=== PATIENT | male | born 1970 | race Caucasian/White ===

== ENCOUNTER 2018-12-25 13:55 | Observation (INO) | payer SELFPAY ==
--- NOTE | 2018-12-25 14:17 | ED ---
HPI Chest Pain - HPI Summary HPI Summary: The patient is a 48 y/o M presenting to [facility] with a chief complaint of sudden onset diffuse squeezing CP starting this morning, which then resolved but resolved until approximately an hour and a half AFTERSCHOOL. He states that the initial CP was less severe than the returned CP. He treated the most recent CP with an oral NTG, which is he prescribed for a previous AR two years ago. The NTG did not immediately relieve the pain, but the pain has subsided to 4/10 in severity now. He also takes a baby aspirin every morning, but he does not take any other medications. He additionally c/o heart palpitations, tightness in the jaw, intermittent episodes of numbness in the left arm, and increased fatigue over the last week. He denies dizziness. He reports no exertion at the time of onset. He had a cardiac catheterization at time of the AR in 2017. - History of Current Complaint Chief Complaint: EDChestPainROMI Time Seen by Provider: 12/25/18 14:09 Hx Obtained From: Patient Onset/Duration: Started Hours Ago - started this morning, then resolved, and returned an hour and a half AFTERSCHOOL, Still Present Timing: Lasting Hours Initial Severity: Severe Current Severity: Moderate Pain Intensity: 4 Pain Scale Used: 0-10 Numeric Chest Pain Location: Diffuse Chest Pain Radiates: No Character: Pressure/Squeezing Aggravating Factor(s): Nothing Alleviating Factor(s): NTG 123 - one pill of NTG with mild relief Associated Signs and Symptoms: Positive: Chest Pain, Numbness - in left arm, intermittent episodes, Palpitations, Other: - jaw tightness. Negative: Dizziness - Allergy/Home Medications Allergies/Adverse Reactions: Allergies Allergy/AdvReac Type Severity Reaction Status Date / Time No Known Allergies Allergy Verified 12/25/18 14:20 Home Medications: Home Medications Aspirin EC TAB* [Ecotrin EC Low Dose 81 MG*] 81 mg PO DAILY 12/25/18 [History Confirmed 12/25/18] PMH/Surg Hx/FS Hx/Imm Hx Endocrine/Hematology History: Denies: Hx Diabetes Cardiovascular History: Reports: Hx Myocardial Infarction - age 46 in 2017 Denies: Hx Hypertension Sensory History: Denies: Hx Deafness Opthamlomology History: Denies: Hx Legally Blind EENT History: Denies: Hx Deafness - Surgical History Surgery Procedure, Year, and Place: cardiac catherization in 2017 Infectious Disease History: No Infectious Disease History: Denies: Traveled Outside the [place] in Last 30 Days - Family History Known Family History: Negative: Diabetes - Social History Alcohol Use: None Hx Substance Use: No Substance Use Type: Reports: None Hx Tobacco Use: No Smoking Status (MU): Never Smoked Tobacco Do You Chew or Dip Tobacco: No Have You Chewed or Dipped Tobacco in the LAST YEAR: No Have You Smoked in the Last Year: No Review of Systems Positive: Fatigue Positive: Other - jaw tightness Positive: Palpitations, Chest Pain - squeezing pain Neurological: Other - NEGATIVE: dizziness Positive: Numbness - in left arm All Other Systems Reviewed And Are Negative: Yes Physical Exam - Summary Physical Exam Summary: VITAL SIGNS: Reviewed. GENERAL: Patient is a well-developed and nourished male who is lying comfortable in the stretcher. Patient is not in any acute respiratory distress. HEAD AND FACE: No signs of trauma. No ecchymosis, hematomas or skull depressions. No sinus tenderness. EYES: PERRLA, EOMI x 2, No injected conjunctiva, no nystagmus. EARS: Hearing grossly intact. Ear canals and tympanic membranes are within normal limits. MOUTH: Oropharynx within normal limits. NECK: Supple, trachea is midline, no adenopathy, no JVD, no carotid bruit, no c- spine tenderness, neck with full ROM. CHEST: Symmetric, no tenderness at palpation LUNGS: Clear to auscultation bilaterally. No wheezing or crackles. CVS: Regular rate and rhythm, S1 and S2 present, no murmurs or gallops appreciated. ABDOMEN: Soft, non-tender. No signs of distention. No rebound no guarding, and no masses palpated. Bowel sounds are normal. EXTREMITIES: FROM in all major joints, no edema, no cyanosis or clubbing. NEURO: Alert and oriented x 3. No acute neurological deficits. Speech is normal and follows commands. SKIN: Dry and warm Triage Information Reviewed: Yes Vital Signs On Initial Exam: Initial Vitals Temp Pulse Resp BP Pulse Ox 97.4 F 93 16 152/102 98 12/25/18 13:59 12/25/18 13:59 12/25/18 13:59 12/25/18 13:59 12/25/18 13:59 Vital Signs Reviewed: Yes Diagnostics - Vital Signs Vital Signs Temp Pulse Resp BP Pulse Ox 12/25/18 13:59 97.4 F 93 16 152/102 98 - Laboratory Result Diagrams: 12/25/18 14:48 12/25/18 14:48 Lab Statement: Any lab studies that have been ordered have been reviewed, and results considered in the medical decision making process. - Radiology CXR Radiology Interpretation Completed By: Radiologist Summary of Radiographic Findings: No active cardiopulmonary disease. ED physician has reviewed this report. - EKG 14:04 Cardiac Rate: NL - 85 BPM EKG Rhythm: Sinus Rhythm EKG Comparison: No Significant Change - Similar to EKG on 11/06/15. Summary of EKG Findings: No ST elevations. Q waves in aVR and aVF. 15:02 Cardiac Rate: NL - 72 BPM EKG Rhythm: Sinus Rhythm EKG Comparison: No Significant Change - Similar to EKG on 12/25/18. Summary of EKG Findings: No ST elevations. Chest Pain Course/Dx - Course Assessment/Plan: The patient is a 48 y/o M presenting to [facility] with a chief complaint of sudden onset diffuse squeezing CP starting this morning, which then resolved but resolved until approximately an hour and a half AFTERSCHOOL. He states that the initial CP was less severe than the returned CP. He treated the most recent CP with an oral NTG, which is he prescribed for a previous AR two years ago. The NTG did not immediately relieve the pain, but the pain has subsided to 4/10 in severity now. He also takes a baby aspirin every morning, but he does not take any other medications. He additionally c/o heart palpitations, tightness in the jaw, intermittent episodes of numbness in the left arm, and increased fatigue over the last week. He denies dizziness. He reports no exertion at the time of onset. He had a cardiac catheterization at time of the AR in 2017. Blood tests without any significant abnormality. EKG shows no ST elevation. Chest x-ray impression: No acute pathology. Since the patient had an AR in the past with 3 stents in the pain has resolved with nitroglycerin I discussed my physical exam and findings with Dr. Cheng from the hospital services who accepted the patient for admission. The patient is hemodynamically stable alert and oriented 3. - Diagnoses Provider Diagnoses: Chest pain due to CAD - Provider Notifications Discussed Care Of Patient With: Chiki Cheng - hospitalist Time Discussed With Above Provider: 17:00 Instructed by Provider To: Other - I spoke with Dr. Cheng for the possibilty of admitting the patient. He will come see the patient in the ED. He accepts the patient for admission at 1730. Discharge - Sign-Out/Discharge Documenting (check all that apply): Patient Departure - Patient will be admitted to [facility] for further care by Dr. Cheng. Patient Received Moderate/Deep Sedation with Procedure: No - Discharge Plan Condition: Stable Disposition: ADMITTED TO [facility] - Billing Disposition and Condition Condition: STABLE Disposition: Admitted to [facility] - Attestation Statements Document Initiated by Nichole: Yes Documenting Scribe: Corina Anderson Provider For Whom Nichole is Documenting (Include Credential): Dr. Baron Valenzuela MD Scribe Attestation: Corina Veliz, scribed for Dr. Baron Valenzuela MD on 12/25/18 at 2045. Scribe Documentation Reviewed: Yes Provider Attestation: The documentation as recorded by the Corina esposito accurately reflects the service I personally performed and the decisions made by me, Dr. Baron Valenzuela MD Status of Scribe Document: Ready
[2018-12-25] MEDS ORDERED: Aspirin 81 mg CHEW TAB* 81 MG TAB.CHEW PO ONE (14:25)
[2018-12-25 14:57] LABS: ABS Basophils 0 10^3/ul (0-0.2); ABS Eosinophils 0 10^3/ul (0-0.6); ABS Lymphocytes 1.5 10^3/ul (1.0-4.8); ABS Monocytes 0.3 10^3/ul (0-0.8); ABS Neutrophils 2.6 10^3/ul (1.5-7.7); ABS Nucleated RBC 0 10^3/ul; Hematocrit 45 % (36-46); Hemoglobin 15.4 g/dL (14.0-18.0); Lymphocyte % 33.6 %; Mean Corpuscular HGB Conc 34 g/dL (31-36); Mean Corpuscular Hemoglobin 31 pg (27-31); Mean Corpuscular Volume 90 fL (80-94); Mean Platelet Volume 7.5 fL (7.4-10.4); Nucleated Red Blood Cells % 0; Platelet Count 182 10^3/uL (150-450); Red Blood Count 5.01 10^6 /uL (4.18-5.48); Red Cell Distribution Width 13 % (10.5-15); White Blood Count 4.5 10^3/uL (3.5-10.8)
[2018-12-25 15:06] LABS: Activated Partial Thrombo Time 33.7 seconds (26.0-36.3); INR 0.97 (0.82-1.09)
[2018-12-25 15:17] LABS: Albumin 4.4 g/dL (3.2-5.2); Albumin/Globulin Ratio 1.9 (1-3); BUN/Creatinine Ratio 17.6 (8-20); Calcium 9.1 mg/dL (8.6-10.3); EGFR African American 78.6 (>60); Globulin 2.3 g/dL (2-4); Magnesium 2.3 mg/dL (1.9-2.7); Potassium 3.9 mmol/L (3.5-5.0); Total Bilirubin 0.5 mg/dL (0.2-1.0); Total Protein 6.7 g/dL (6.4-8.9)
[2018-12-25 15:19] LABS: CKMB ng/mL 0.6 ng/mL (0.6-6.3)
[2018-12-25 15:32] LABS: TSH (Thyroid Stimulating Horm) 1.23 mcIU/mL (0.34-5.60)
[2018-12-25] MEDS ORDERED: Acetaminophen TAB* 325 MG PO PRN (17:51)
--- NOTE | 2018-12-25 19:38 | HP ---
Amended report to enter cosigning physician. CC: Nadine Lemus; Dr. Obrien* HISTORY AND PHYSICAL: DATE OF ADMISSION: 12/25/18 PROVIDER: Valentina Ching NP PRIMARY CARE PROVIDER: Nadine Lemus. ATTENDING PHYSICIAN WHILE IN THE HOSPITAL: Dr. Reese Eden* (dictated by Valentina Ching NP). CHIEF COMPLAINT: Chest pain. HISTORY OF PRESENT ILLNESS: Mr. Cavanaugh is a 48-year-old male with a past medical history significant for coronary artery disease, who reports approximately 2 years ago he had what he was told was an MO. At that time, he went through a nuclear stress testing and cardiac catheterization and was told that he had vessel disease, but did not require stenting at that time. The patient reports that he followed Dr. Obrien for approximately 1 year ago and then has not followed since. He said he had this cardiac catheterization approximately 2 years ago. Since that time, he has been on aspirin and he takes nitro sublingual as needed for chest pain. He reports that he has not taken his nitro sublingual for chest pain in over a year until approximately 1 week ago when he reports he had an episode of chest pain, palpitations, and tightness in his chest and he took a nitro and the pain eventually subsided. Today, while at work, the patient reports that he developed chest pain that was tightness, crushing chest pain that radiated to his left arm and to his jaw. He reports he had numbness in his left arm. He reports that the pain lasted for approximately an hour and a half. He took a nitro, which did not really significantly improve the pain and then when he presented to the emergency room , he was given aspirin. He said the pain eventually subsided and he is currently pain-free. The patient also reports that he has had increased fatigue over the past week and has been feeling exhausted, which is abnormal for him. He denies any difficulty performing daily activities or doing his normal work, just the increased fatigue and exhaustion. He denies any fever, chills, unintended weight loss. Denies any recent illnesses. No nausea, vomiting, diarrhea, abdominal pain. He does report that he was slightly short of breath with the chest tightness and crushing chest pain as well as he became diaphoretic. He denies any gross hematuria, dysuria, focal weakness, or sensory loss. Denies any visual complaints, dysphagia, arthralgias, myalgias, rashes, lesions, open sores, psychosis, or anxiety. Due to his chest pain and history of coronary artery disease, we were asked to see and evaluate him and rule him out for acute coronary syndrome. PAST MEDICAL HISTORY: Coronary artery disease, questionable MO approximately 2 years ago. PAST SURGICAL HISTORY: Cardiac catheterization approximately 2 years ago. HOME MEDICATIONS: 1. Aspirin 81 mg p.o. daily. 2. Medication for acid reflux unknown. ALLERGIES: No known drug allergies. FAMILY HISTORY: Mother and father with hypertension. Grandparents with diabetes. Maternal and paternal grandparents both with cancer, pancreatic, colon and lung. SOCIAL HISTORY: He denies any tobacco. He does report occasional alcohol use. Denies any illicit drug use. 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 He is . Surrogate decision maker in the event he is unable to make his own decisions is his . Code status: He is a full code. REVIEW OF SYSTEMS: A review of 14 systems was completed. All pertinent positives were mentioned in the HPI, otherwise were negative. PHYSICAL EXAMINATION GENERAL: At this time, Mr. Cavanaugh is alert and oriented, resting on the stretcher in the emergency room. He does not appear to be in any acute distress. He is a well-developed, well-nourished male. VITAL SIGNS: Temperature 97.4, pulse 93, respirations 16, O2 saturation 98%, blood pressure 152/102. HEENT: Head is atraumatic, normocephalic. Eyes: EOMs are intact. Sclerae anicteric and not pale. Oral mucosa appeared to be moist. NECK: Supple. LUNGS: Clear to auscultation bilaterally. No wheezes, rales, or rhonchi. CARDIAC: S1, S2. Regular rate and rhythm. No murmurs, rubs, or gallops. ABDOMEN: Soft and nontender. Bowel sounds are present x4. EXTREMITIES: He is able to move all 4 extremities. There is no clubbing or cyanosis. NEUROLOGIC: He is awake, alert, oriented x3. Speech is clear. Thought process is intact. Cranial nerves II through XII are grossly intact. There is no gross focal weakness or sensory loss noted. PSYCH: The patient is cooperative. SKIN: Intact. DIAGNOSTIC STUDIES/LAB DATA: WBCs were 4.5, RBCs 5.01, hemoglobin 15.4, hematocrit was 45, platelet count 182. INR was 0.97. Sodium 139, potassium 3.9 , chloride 106, carbon dioxide was 27, anion gap was 6, BUN was 21, creatinine 1.19, glucose 81, lactic acid 0.7, calcium 9.1, magnesium 2.3. ASTs were 17, ALTs were 16, alkaline phosphatase was 50. CK is 218. Troponin is 0.00 x2. BNP was 20. TSH was 1.23. He had an electrocardiogram, which showed sinus rhythm at a rate of 85. No ST changes. He had a chest x-ray, radiologist's impression: No active cardiopulmonary disease. ASSESSMENT AND PLAN: Mr. Cavanaugh is a 48-year-old male with a past medical history significant for coronary artery disease, status post cardiac catheterization in 2016 at [facility] in [place], who presented to the emergency room with a complaint of chest pain. He will be admitted under observation for chest pain, rule out acute coronary syndrome. 1. Chest pain. At this time, we will rule him out for acute coronary syndrome. Currently, his troponin is 0.00 x2. The patient does have a known history of having an myocardial infarction with coronary artery disease, status post cardiac catheterization in 2016 with known vessel lesion at that time per the patient, but reports that the lesions were not significant enough to be stented. I will obtain the cath report from [place]. The patient has had 2 episodes of chest pain in the past week. At this time, I would recommend that he be admitted. We will continue to trend his troponin. His SALEEM score is 2 giving him an 8% of 14 days all-cause mortality of new or recurrent myocardial infarction or severe recurrent ischemia requiring urgent revascularization. I am going to continue him on aspirin 81 mg p.o. daily. We will get a nuclear exercise stress test on Friday. He will have a transthoracic echocardiogram on Friday. I will repeat an EKG in the a.m. I will also get a lipid profile. 2. Acid reflux. The patient takes [id number] medication for acid reflux. I will place him on Pepcid during his hospitalization. 3. FEN: He can have a heart-healthy, decaf okay diet. 4. Code status: He is a full code. 5. DVT prophylaxis: I will encourage ambulation as he scores a 1 on the DVT Risk Assessment. TIME SPENT: Time spent on this admission was 60 minutes, greater than half that time was spent at the bedside reviewing events leading thus far to his hospitalization, performing my physical exam, and reviewing my plan of care. I have discussed this with my attending, Dr. Reese Eden; he is in agreement with my plan. VALENTINA CHING, CADASTRAL ENGINEER [id number]/[facility] #: [id number] TINY
[2018-12-26 06:28] LABS: HDL Cholesterol 53.4 mg/dL
[2018-12-26] MEDS ORDERED: Aspirin EC TAB* 81 MG TAB.EC PO SCH (09:00)
[2018-12-26 12:19] VITALS: BP 126/94
--- NOTE | 2018-12-26 21:14 | DS ---
CC: Dr. Obrien, Cardiology from [facility]* DISCHARGE SUMMARY: DATE OF ADMISSION: 12/25/18 DATE OF DISCHARGE: 12/26/18 DISPOSITION ON DISCHARGE: Home. CONDITION ON DISCHARGE: Good. PRIMARY DIAGNOSIS: Chest pain. MEDICATIONS AT DISCHARGE: Include aspirin. PERTINENT LABORATORY DATA: Troponin I 0.00 on 3 consecutive checks. HISTORY OF PRESENT ILLNESS AND HOSPITAL COURSE: This is a 48-year-old man with past medical history outlined as in the history of present illness on the day of admission including history of coronary catheterization approximately 2-1/2 years prior with [facility]. This report was notable for no occlusive coronary artery disease but notable "slow flow in some of the vessels," presented to the hospital with 1 episode of chest discomfort that resolved prior to presentation. Three negative troponins and nonischemic EKG. He was ambulated around the unit without any additional chest pain prior to his departure. We did discuss admitting him to the hospital for another 48 hours and awaiting a stress test on Friday with our reorganization; however, he preferred to follow up with his own provider and schedule a stress test early this next week. We discussed patient-centered decision that it will be okay for him to wait with us to proceed with stress test and there would be some risk on leaving the hospital, however, not definable amount. He acknowledged his choice in participating this decision with this author. The patient and his will call Dr. Obrien on Friday to schedule followup and schedule an additional stress test should his authorization representative prefer it. Reasons to return to the hospital were discussed at length with the patient's including recurrent chest pain with or without exertion, shortness of breath, nausea, vomiting, lightheadedness, loss of consciousness, near loss of consciousness. The patient will only participate in light activity; avoid caffeine, alcohol, and chocolate. He understands with recurrent chest pain he should activate EMS and not drive himself to the hospital. TIME SPENT: Greater than 60 minutes was spent on this discharge of this patient , greater than half was spent [id number] with the patient. [id number]/[facility] #: [id number] TINY
== END 2018-12-26 12:20 | disposition home or self-care (01) ==
LOC: ED 13:55 → MEDTELE 17:51
PROVIDERS: ADMIT Internal Medicine; ATTEND Internal Medicine
DX: R07.9 Chest pain, unspecified (principal); I25.10 Atherosclerotic heart disease of native coronary artery without angina pectoris; Z79.82 Long term (current) use of aspirin; M79.602 Pain in left arm; R20.0 Anesthesia of skin; R53.83 Other fatigue; Z95.9 Presence of cardiac and vascular implant and graft, unspecified
CPT/HCPCS: 36415; 71045; 80053; 80061; 82550; 82553; 83036; 83605; 83735; 83880; 84443; 84484; 85025; 85610; 85730; 93005; 99284; A9270-GY; G0378